=== PATIENT | male | born 1995 | race Caucasian/White ===

== ENCOUNTER 2024-09-17 19:30 | Emergency (ER) | payer OTHER ==
[~2024-09-17] VITALS: Ht 157.5 cm; Wt 104.3 kg
[2024-09-17] MEDS ORDERED: MORPHINE SULFATE 2 MG/ML SYRINGE IV ONE (21:30)
[2024-09-17] MEDS ORDERED: LIDOCAINE HCL 1% 10ML VIAL IJ ONE (22:15)
[2024-09-17] MEDS ORDERED: CEFTRIAXONE SODIUM 1,000 MG VIAL IM ONE (23:45)
[2024-09-18] MEDS ORDERED: MORPHINE SULFATE 4 MG/ML CARTRIDGE IV ONE (01:30)
[2024-09-18] MEDS ORDERED: OxyCODONE HCL/APAP UD (PERCOCET) PO ONE (01:45)
[2024-09-18] MEDS ORDERED: CEPHALEXIN500 M1 PO (02:15)
[2024-09-18] MEDS ORDERED: PERCOCET 10-321 EACH PO (02:15)
== END 2024-09-18 02:30 | disposition home or self-care (01) ==
LOC: ER 19:31
DX: S61.411A Laceration without foreign body of right hand, initial encounter (principal); S42.031A Displaced fracture of lateral end of right clavicle, initial encounter for closed fracture; V29.888A Rider (driver) (passenger) of other motorcycle injured in other specified transport accidents, initial encounter; Y93.89 Activity, other specified; Y92.89 Other specified places as the place of occurrence of the external cause; Y99.8 Other external cause status

== ENCOUNTER 2024-09-26 17:29 | Emergency (ER) | payer OTHER ==
[~2024-09-26] VITALS: Ht 175.3 cm; Wt 98.0 kg
[~2024-09-26 17:29] MED LIST: CEPHALEXIN500 M1 PO; PERCOCET 10-321 EACH PO
== END 2024-09-26 20:20 | disposition home or self-care (01) ==
LOC: ER 17:29
DX: Z48.02 Encounter for removal of sutures (principal)